=== PATIENT | female | born 1955 | race Caucasian/White ===

== ENCOUNTER 2018-10-24 09:23 | Day surgery (SDC) | payer OTHER ==
[~2018-10-24] VITALS: Ht 167.6 cm; Wt 70.3 kg
[2018-10-24] MEDS ORDERED: LIDOCAINE 2% 100 MG/5 ML UJET TP ONE (11:44)
[2018-10-24] MEDS ORDERED: fentaNYL 0.05 MG/ML VIAL ONE (11:44)
[2018-10-24] MEDS ORDERED: fentaNYL 0.05 MG/ML VIAL IVP ONE (12:25)
== END 2018-10-24 12:23 | disposition home or self-care (01) ==
LOC: MMU 09:23 → MDS 09:23
PROVIDERS: ATTEND Internal Medicine Gastroenterology
DX: Z12.11 Encounter for screening for malignant neoplasm of colon (principal); D12.8 Benign neoplasm of rectum; Z86.010 Personal history of colon polyps; Z98.890 Other specified postprocedural states; Z79.899 Other long term (current) drug therapy; Z87.891 Personal history of nicotine dependence
CPT/HCPCS: 45385; J3010